=== PATIENT | female | born 1995 | race African-American/Black ===

== ENCOUNTER 2016-11-12 10:45 | Inpatient (IN) | payer OTHER ==
[2016-11-12] MEDS: DEXTROSE 5%-LACTATED RINGERS 1,000 ML IV SCH ×2 (11:05→17:26)
[2016-11-12] MEDS ORDERED: BUTORPHANOL TARTRATE 1 MG/ML VIAL IVPB ONE ×2 (11:09→12:15)
--- NOTE | 2016-11-12 11:13 | HP ---
Past Medical History - Primary Care Physician PCP:: Merced Piedra - Admission Chief Complaint: Labor History of Present Illness: 21 yo P0 with c/o labor for delivery History Source: Patient - Past Surgical History Past Surgical History: Yes: None Hx Myomectomy: No Hx Transabdominal Cerclage: No - Smoking History Smoking history: Never smoked Aproximately how many cigarettes per day: 0 - Alcohol/Substance Use Hx Alcohol Use: No History of Substance Use: reports: None - Social History History of Recent Travel: No Home Medications - Allergies Allergies/Adverse Reactions: Allergies Allergy/AdvReac Type Severity Reaction Status Date / Time No Known Allergies Allergy Verified 11/12/16 11:04 - Home Medications Home Medications: Ambulatory Orders Vitamins (Sjr) - 1 tab PO DAILY 11/12/16 Review of Systems - Review of Systems Constitutional: reports: No Symptoms Eyes: reports: No Symptoms HENT: reports: No Symptoms Neck: reports: No Symptoms Cardiovascular: reports: No Symptoms Respiratory: reports: No Symptoms Gastrointestinal: reports: No Symptoms Genitourinary: reports: No Symptoms Breasts: reports: No Symptoms Reported Musculoskeletal: reports: No Symptoms Integumentary: reports: No Symptoms Neurological: reports: No Symptoms Endocrine: reports: No Symptoms Hematology/Lymphatic: reports: No Symptoms Psychiatric: reports: No Symptoms Physical Exam - Maternity Constitutional: Yes: Well Nourished, No Distress Cardiovascular: Yes: WNL Breast(s): Yes: WNL - Abdominal Exam/OB Number of Fetuses: Single Presentation: Vertex Contractions: Yes Regularity: Regular Monitor Mode: External Heart Rate Location: [facility] Category: I Accelerations: Non-Uniform Decelerations: None - Vaginal Exam/OB Dilatation (cm): 4 Effacement (%): 100 Amniotic Membrane Status: Intact Presentation: Vertex/Position Station: -1 - Physical Exam Musculoskeletal: Yes: WNL Extremities: Yes: WNL Edema: No Hemorrhage Risk Assessment - Risk Factors Risk Score: 0 Risk Level: Low Risk Problem List - Problems (1) Labor established Code(s): [id number] - Assessment/Plan IUP at 40 weeks labor estavblished Cat 1 Plan admit to
[2016-11-12] MEDS ORDERED: AMPICILLIN - 100 ML IVPB ONE (11:30)
[2016-11-12 11:51] LABS: BASOPHIL 0.2 % (0-2.0); EOSINOPHIL 0.3 % (0-4.5); MCH 26.2 pg (25.7-33.7); MCHC 33.5 g/dl (32.0-36.0); MEAN CELL VOLUME 78.2 fl (80-96); MEAN PLT VOLUME 8.4 fl (7.5-11.1); NEUTROPHILS 65.9 % (42.8-82.8); PLATELET COUNT 267 K/MM3 (134-434); RDW 16.1 % (11.6-15.6); WHITE BLOOD COUNT 15.2 K/mm3 (4.0-10.0)
[2016-11-12 11:53] LABS: URINE APPEARANCE CLEAR; URINE BILIRUBIN NEGATIVE (NEGATIVE); URINE BLOOD NEGATIVE (NEGATIVE); URINE COLOR STRAW; URINE GLUCOSE (UA) NEGATIVE (NEGATIVE); URINE KETONE NEGATIVE (NEGATIVE); URINE NITRITE NEGATIVE (NEGATIVE); URINE PROTEIN NEGATIVE (NEGATIVE); URINE UROBILINOGEN NEGATIVE mg/dL (0.2-1.0)
[2016-11-12 11:55] LABS: URINE LEUK ESTERASE 2+ (NEGATIVE)
[2016-11-12 12:01] LABS: URINE MUCUS RARE; URINE RBC 1 /hpf (0-3); URINE WBC 26 /hpf (3-5)
[2016-11-12] MEDS ORDERED: PROMETHAZINE HCL 25 MG/1 ML VIAL IVPB ONE (12:15)
[2016-11-12 12:16] LABS: ANION GAP 11 (8-16); CALCIUM 8.7 mg/dL (8.5-10.1); CO2 22 mmol/L (21-32); CREATININE 0.6 mg/dL (0.55-1.02); GLUCOSE,RANDOM 91 mg/dL (74-106); INR 0.99 (0.82-1.09); PROTHROMBIN TIME (PATIENT) 10.9 SEC (9.98-11.88)
[2016-11-12 12:19] LABS: ACTIVATED PTT 22.8 SECONDS (26.9-34.4)
[2016-11-12 12:52] VITALS: BMI 36.0
[2016-11-12] MEDS ORDERED: TUBERCULIN PPD 5 TU/0.1ML SYRINGE (IN PATIENT USE ONLY) ID ONE (13:00)
--- NOTE | 2016-11-12 14:49 | PN ---
Ante-Partal Exam - Subjective Subjective: Pt with c/o contractions no rom no bleeding Vital Signs: Vital Signs Temperature 98.3 F 11/12/16 14:00 Pulse Rate 70 11/12/16 14:00 Respiratory Rate 18 11/12/16 14:00 Blood Pressure 123/76 11/12/16 14:00 O2 Sat by Pulse Oximetry (%) Bleeding: No Headache: No Visual changes: No Right upper quadrant pain: No - Contractions Contractions: Yes Regularity: Regular Monitor Mode: External - Exam during Labor Variability: Moderate Heart Rate Location: [facility] Category: I Monitor Accelerations: Present Monitor Decelerations: None Exam: Vaginal Dilatation (cm): 9 Effacement (%): 100 Amniotic Membrane Status: Ruptured Amniotic Fluid: Clear Presentation: Vertex Station: 0 - Intrapartum Hemorrhage Risk Risk Score: 0 Risk Level: Low Risk - Assessment/Plan Assessment/Plan: Active labor arom Cat 1 Plan continue present management Pt refusing epidural
[2016-11-12] MEDS ORDERED: WITCH HAZEL 50% (TUCKS) 40 PAD/JAR PAD TP PRN (14:50)
[2016-11-12] MEDS ORDERED: BISACODYL 10 MG SUPP.RECT RC PRN (14:50)
[2016-11-12] MEDS ORDERED: METHYLERGONOVINE MALEATE 0.2 MG/1 ML AMP IM PRN (14:50)
[2016-11-12] MEDS ORDERED: BENZOCAINE 28 GM HEMORRHOIDAL OINTMENT PR PRN (14:50)
[2016-11-12] MEDS ORDERED: BENZOCAINE 20% 57 GM BOTTLE TP PRN (14:50)
[2016-11-12] MEDS ORDERED: SIMETHICONE 80 MG TAB.CHEW (FP) PO PRN (14:51)
[2016-11-12] MEDS ORDERED: IBUPROFEN 600 MG TABLET (FP) PO PRN (14:51)
[2016-11-12] MEDS: AMPICILLIN - 100 ML IVPB SCH ×2 (14:59→18:44)
[2016-11-12] MEDS ORDERED: D5W-LR W/ 20 UNITS OXYTOCIN 1,000 ML IV SCH ×2 (15:00→20:30)
--- NOTE | 2016-11-12 20:20 | PN ---
Ante-Partal Exam - Subjective Subjective: Pt pushing in 2nd stage Vital Signs: Vital Signs Temperature 98.5 F 11/12/16 18:00 Pulse Rate 84 11/12/16 18:00 Respiratory Rate 20 11/12/16 18:00 Blood Pressure 132/82 11/12/16 18:00 O2 Sat by Pulse Oximetry (%) - Contractions Contractions: Yes - Exam during Labor Category: II Monitor Accelerations: Present Monitor Decelerations: Prolonged Exam: Vaginal Dilatation (cm): 10 Effacement (%): 100 Presentation: Vertex Station: +2 - Intrapartum Hemorrhage Risk Risk Score: 0 Risk Level: Low Risk - Assessment/Plan Assessment/Plan: prolonged 2nd stage Cat 2 Plan anticipate vaginal delivery
[2016-11-12 20:21] LABS: VENOUS PH 7.39 (7.32-7.42)
[2016-11-12 20:22] LABS: VENOUS BLOOD GAS HCO3 18.8 meq/L (19-25)
[2016-11-12 20:24] LABS: ART PUNCT SITE OTHER; ARTERIAL BLD GAS O2 SATURATION 41.5 % (90-98.9); ARTERIAL BLOOD GAS BASE EXCESS -3.5 meq/l (-2-2); ARTERIAL BLOOD GAS HCO3 21.8 meq/L (22-26); ARTERIAL BLOOD GAS pH 7.33 (7.35-7.45); LPM/O2% 21%; PT. ON O2? no
--- NOTE | 2016-11-12 20:24 | LDN ---
Shoulder Dystocia Delivery Time Head Delivered: 19:59 Time Body Delivered: 20:00 - Initial Traction Gentle attempt at traction, assisted by maternal expulsive forces - Maneuvers utilized in order and by whom Maneuver 1: Episiotomy Maneuver 2: Jeet Maneuver 3: Suprapubic Pressure Maneuver 4: Episiotomy Extension Maneuver 5: Wood's Maneuver Maneuver 6: Posterior Arm Release The arm under the symphysis at the point of the head was: Right Maneuvers: Goodson's Maneuver - 30 degree oblique rotation of the anterior shoulder with the spine oriented anteriorly Wood's Maneuver - reduce anterior shoulder fro posterior aspect pushing in direction face is looking
[2016-11-12 20:25] LABS: TYPE OF O2 room air
--- NOTE | 2016-11-12 20:30 | PN ---
Delivery - Delivery Vaginal Delivery: Shoulder/Difficult Type of Anesthesia: Local Episiotomy/Laceration: Right Mediolateral, Cervical Extension/lac (Nuchal cord reduced. 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
[2016-11-12] MEDS: FERROUS SO4 325 MG TABLET (FP) PO SCH (21:37)
[2016-11-12] MEDS: ACETAMINOPHEN 325 MG TABLET (FP) PO PRN (21:37)
[2016-11-12] MEDS: IBUPROFEN 600 MG TABLET (FP) PO PRN (21:38)
--- NOTE | 2016-11-13 06:23 | PN ---
Post Note - Post Date of Delivery: 11/12/16 Post Day: 1 Vital Signs: Vital Signs - 24 hr 11/12/16 11/12/16 11/12/16 11:00 12:00 13:00 Temperature 98.2 F 98.3 F Pulse Rate 67 88 86 Respiratory 20 18 18 Rate Blood Pressure 137/83 122/83 120/78 11/12/16 11/12/16 11/12/16 14:00 15:00 16:00 Temperature 98.3 F Pulse Rate 70 73 79 Respiratory 18 18 20 Rate Blood Pressure 123/76 122/56 121/82 11/12/16 11/12/16 11/12/16 17:00 18:00 19:00 Temperature 97.6 F 98.5 F 98.4 F Pulse Rate 74 84 86 Respiratory 20 20 20 Rate Blood Pressure 139/78 132/82 130/67 11/12/16 11/12/16 11/12/16 20:20 20:35 20:50 Temperature 98.4 F Pulse Rate 99 H 88 80 Respiratory 18 20 20 Rate Blood Pressure 146/83 128/79 129/69 11/12/16 11/12/16 11/13/16 21:00 21:05 02:00 Temperature 99.8 F H 99.1 F Pulse Rate 83 82 114 H Respiratory 18 20 20 Rate Blood Pressure 126/73 125/62 128/63 11/13/16 06:00 Temperature 98.3 F Pulse Rate 100 H Respiratory 20 Rate Blood Pressure 112/57 Labs: Laboratory Results - last 24 hr 11/12/16 11/12/16 11/12/16 11:15 11:15 11:15 WBC 15.2 H RBC 3.91 Hgb 10.2 L Hct 30.6 L MCV 78.2 L MCH 26.2 MCHC 33.5 RDW 16.1 H Plt Count 267 MPV 8.4 Neutrophils % 65.9 Lymphocytes % 20.7 Monocytes % 12.9 H Eosinophils % 0.3 Basophils % 0.2 INR 0.99 PTT (Actin FS) 22.8 L Puncture Site ABG pH ABG pCO2 at Pt Temp ABG pO2 at Pt Temp ABG HCO3 ABG O2 Sat (Measured) ABG O2 Content ABG Base Excess Glenn Test VBG pH POC VBG pCO2 POC VBG pO2 Mixed VBG HCO3 O2 Delivery Device Oxygen Flow Rate Sodium 139 Potassium 3.2 L Chloride 106 Carbon Dioxide 22 Anion Gap 11 BUN 3 L Creatinine 0.6 Random Glucose 91 Calcium 8.7 Urine Color Urine Appearance Urine pH Ur Specific [place] Urine Protein Urine Glucose (UA) Urine Ketones Urine Blood Urine Nitrite Urine Bilirubin Urine Urobilinogen Ur Leukocyte Esterase Urine RBC Urine WBC Ur Epithelial Cells Urine Mucus RPR Titer Blood Type Antibody Screen 11/12/16 11/12/16 11/12/16 11:15 11:15 11:30 WBC RBC Hgb Hct MCV MCH MCHC RDW Plt Count MPV Neutrophils % Lymphocytes % Monocytes % Eosinophils % Basophils % INR PTT (Actin FS) Puncture Site ABG pH ABG pCO2 at Pt Temp ABG pO2 at Pt Temp ABG HCO3 ABG O2 Sat (Measured) ABG O2 Content ABG Base Excess Glenn Test VBG pH POC VBG pCO2 POC VBG pO2 Mixed VBG HCO3 O2 Delivery Device Oxygen Flow Rate Sodium Potassium Chloride Carbon Dioxide Anion Gap BUN Creatinine Random Glucose Calcium Urine Color Straw Urine Appearance Clear Urine pH 7.0 Ur Specific [place] 1.015 Urine Protein Negative Urine Glucose (UA) Negative Urine Ketones Negative Urine Blood Negative Urine Nitrite Negative Urine Bilirubin Negative Urine Urobilinogen Negative Ur Leukocyte Esterase 2+ H Urine RBC 1 Urine WBC 26 Ur Epithelial Cells Rare Urine Mucus Rare RPR Titer Nonreactive Blood Type A POSITIVE Antibody Screen Negative 11/12/16 11/12/16 11/12/16 12:58 20:20 20:20 WBC RBC Hgb Hct MCV MCH MCHC RDW Plt Count MPV Neutrophils % Lymphocytes % Monocytes % Eosinophils % Basophils % INR PTT (Actin FS) Puncture Site Other ABG pH 7.33 L ABG pCO2 at Pt Temp 42.3 ABG pO2 at Pt Temp 22.0 L* ABG HCO3 21.8 L ABG O2 Sat (Measured) 41.5 L* ABG O2 Content 9.6 L* ABG Base Excess -3.5 L Glenn Test Not applicable VBG pH 7.39 POC VBG pCO2 31.6 L POC VBG pO2 36.3 Mixed VBG HCO3 18.8 L O2 Delivery Device room air Oxygen Flow Rate 21% Sodium Potassium Chloride Carbon Dioxide Anion Gap BUN Creatinine Random Glucose Calcium Urine Color Urine Appearance Urine pH Ur Specific [place] Urine Protein Urine Glucose (UA) Urine Ketones Urine Blood Urine Nitrite Urine Bilirubin Urine Urobilinogen Ur Leukocyte Esterase Urine RBC Urine WBC Ur Epithelial Cells Urine Mucus RPR Titer Blood Type A POSITIVE Antibody Screen - Subjective Subjective: No Complaints - Objective Afebrile: Yes Breast: Not engorged Abdomen: Soft, Non-tender Uterus: Fundus firm Vagina: Scant lochia Extremities: Non-tender - Assessment/Plan (1) Labor established Assessment: S/P Normal Plan: Routine Care
[2016-11-13 08:00] LABS: MCH 26.2 pg (25.7-33.7); MCHC 33.1 g/dl (32.0-36.0); MEAN CELL VOLUME 79.2 fl (80-96); MEAN PLT VOLUME 9.1 fl (7.5-11.1); PLATELET COUNT 237 K/MM3 (134-434); RDW 15.7 % (11.6-15.6); WHITE BLOOD COUNT 25.1 K/mm3 (4.0-10.0)
[2016-11-13] MEDS: FERROUS SO4 325 MG TABLET (FP) PO SCH ×2 (09:36→21:31)
[2016-11-13] MEDS: ACETAMINOPHEN 325 MG TABLET (FP) PO PRN ×2 (09:36→21:31)
[2016-11-13] MEDS: IBUPROFEN 600 MG TABLET (FP) PO PRN ×2 (09:37→21:31)
[2016-11-13] MEDS ORDERED: DIPHTH,PERTUSS(ACELL),TET 0.5 ML DISP.SYRIN IM ONE (10:00)
[2016-11-13 11:17] LABS: PLATELET ESTIMATE ADEQUATE (NORMAL)
--- NOTE | 2016-11-14 05:13 | DS ---
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: Vital Signs Temperature 98.0 F 11/13/16 22:00 Pulse Rate 98 H 11/13/16 22:00 Respiratory Rate 18 11/13/16 22:00 Blood Pressure 115/60 11/13/16 22:00 O2 Sat by Pulse Oximetry (%) Constitutional: Yes: Well Nourished, No Distress Neck: Yes: WNL Cardiovascular: Yes: WNL Respiratory: Yes: WNL Gastrointestinal: Yes: WNL, Soft Breast(s): Yes: WNL Musculoskeletal: Yes: WNL Extremities: Yes: WNL Labs: CBC, BMP 11/13/16 06:00 11/12/16 11:15 Delivery - Delivery Vaginal Delivery: Shoulder/Difficult Type of Anesthesia: Local Episiotomy/Laceration: Right Mediolateral, Cervical Extension/lac (Nuchal cord reduced. 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
[2016-11-14] MEDS: FERROUS SO4 325 MG TABLET (FP) PO SCH (09:31)
[2016-11-14 13:15] VITALS: BP 129/76; PULSE 90; TEMP 98.8
== END 2016-11-14 12:15 | disposition home or self-care (01) | DRG 560 ==
LOC: JDEL 10:45 → JLDR 11:00 → J3W 21:09
PROVIDERS: ADMIT Obstetrics & Gynecology; ATTEND Obstetrics & Gynecology
PROC: 10E0XZZ Delivery of Products of Conception, External Approach (ICD-10-PCS; principal; 2016-11-12)
PROC: 0W8NXZZ Division of Female Perineum, External Approach (ICD-10-PCS; 2016-11-12)
DX: O48.0 Post-term pregnancy (principal); Z3A.40 40 weeks gestation of pregnancy; Z37.0 Single live birth
CPT/HCPCS: 36415; 36600; 59409; 80048; 81003; 81015; 82803; 85025; 85610; 85730; 86593; 86850; 86900; 86901; 87340; 90715

== ENCOUNTER 2017-07-02 16:56 | Emergency (ER) | payer OTHER ==
[2017-07-02 17:36] VITALS: BP 156/85; PULSE 79; TEMP 97.7; BMI 31.7
--- NOTE | 2017-07-02 17:51 | PDOC ---
Rapid Medical Evaluation Time Seen by Provider: 07/02/17 17:31 Medical Evaluation: Allergies Allergy/AdvReac Type Severity Reaction Status Date / Time No Known Allergies Allergy Verified 07/02/17 17:24 07/02/17 17:31 I have performed a brief in-person evaluation of this patient. The patient presents with a chief complaint of: Recurrent abscesses to b/l axilla, here w/ recurrent abscess to L axilla, no f/c Pertinent physical exam findings:sinus tracts w/ scarring to b/l axilla w/ ~2x1 cm draining abscess to L axilla w/ surrounding erythema I have ordered the following:nothing The patient will proceed to the ED for further evaluation.
--- NOTE | 2017-07-02 18:25 | PDOC ---
History of Present Illness - General Chief Complaint: Abscess Boil Stated Complaint: CYST Time Seen by Provider: 07/02/17 17:31 History Source: Patient Exam Limitations: No Limitations - History of Present Illness Initial Comments: 07/02/17 18:40 Patient is a 22-year-old female, history of multiple abscesses presents with inflamed abscesses to bilateral axilla. Patient was seen at [facility] for the same and was told to apply a and D ointment to area patient did not want to apply any ointments to area so she came here for evaluation. Patient complaining of pain described as stabbing to bilateral axilla, no fever, multiple draining wounds to bilateral sides. Past Medical History: [Denies]. Allergies: No known allergies Medications: [] Family History: Non-contributory Social History: Denies smoking, alcohol use, or IVDU Vital signs on arrival are [notable for pulse of 96.] Review of Systems GENERAL/CONSTITUTIONAL: [No fever or chills. No weakness. No weight change.] HEAD, EYES, EARS, NOSE AND THROAT: [No change in vision. No ear pain or discharge. No sore throat. ] CARDIOVASCULAR: [No chest pain or shortness of breath.] RESPIRATORY: [No cough, wheezing, or hemoptysis.] GASTROINTESTINAL: [No nausea, vomiting, diarrhea or constipation. No rectal bleeding.] GENITOURINARY: [No dysuria, frequency, or change in urination.] MUSCULOSKELETAL: [No joint or muscle swelling or pain. No neck or back pain.] SKIN : [No rash or easy bruising. Erythematous, draining lesions to bilateral axilla] NEUROLOGIC: [No headache, vertigo, loss of consciousness, or loss of sensation.] PSYCHIATRIC: [No depression or anxiety.] Physical Exam: GENERAL: [The patient is awake, alert, and fully oriented, in no acute distress. ] HEAD: [Normal with no signs of trauma.] EYES: [Pupils equal, round and reactive to light, extraocular movements intact, sclera anicteric, conjunctiva clear.] ENT: [Ears normal, nares patent, oropharynx clear without exudates. Moist mucous membranes. No uvula deviation] NECK: [Normal range of motion, supple without lymphadenopathy, JVD, or masses.] LUNGS: [Breath sounds equal, clear to auscultation bilaterally. No wheezes, and no crackles.] HEART: [Regular rate and rhythm, normal S1 and S2 without murmur, rub or gallop. ] ABDOMEN: [Soft, nontender, normoactive bowel sounds. No guarding, no rebound. No masses. No bruising or abrasions] RECTAL : [Guaiac negative, normal rectal tone.] MUSCULOSKELETAL: [Normal range of motion, no edema. No clubbing or cyanosis. No cords, erythema, or tenderness. No CVA Tenderness with fist.] NEUROLOGICAL: [Cranial nerves II through XII grossly intact. Normal speech, normal gait.] PSYCH: [Normal mood, normal affect.] SKIN: Erythematous, painful, draining pustulant drainage lesions to bilateral axilla consistent with hidradenitis Past History - Past Medical History Allergies/Adverse Reactions: Allergies Allergy/AdvReac Type Severity Reaction Status Date / Time No Known Allergies Allergy Verified 07/02/17 17:32 Home Medications: Ambulatory Orders Clindamycin [Cleocin -] 300 mg PO TID #30 capsule 07/02/17 Fluconazole [Diflucan -] 150 mg PO ONCE #3 tablet 07/02/17 Oxycodone HCl/Acetaminophen [Percocet 5-325 mg Tablet] 1 tab PO Q6H PRN #8 tablet MDD 4 07/02/17 Asthma: No Cancer: No Cardiac Disorders: No COPD: No DVT: No Diabetes: No HTN: No Seizures: No Thyroid Disease: No - Immunization History Immunization Up to Date: Yes - Suicide/Smoking/Psychosocial Hx Smoking Status: No Smoking History: Never smoked Have you smoked in the past 12 months: No Number of Cigarettes Smoked Daily: 0 Information on smoking cessation initiated: No Hx Alcohol Use: No Drug/Substance Use Hx: No Substance Use Type: None Hx Substance Use Treatment: No *Physical Exam - Vital Signs Last Vital Signs Temp Pulse Resp BP Pulse Ox 97.7 F 79 16 156/85 100 07/02/17 17:32 07/02/17 17:32 07/02/17 17:32 07/02/17 17:32 07/02/17 17:32 Medical Decision Making - Medical Decision Making 07/02/17 18:46 A/P: Patient with hidradenitis suppurativa, will DC patient on clindamycin, Diflucan for frequent yeast infections while taking antibiotics and Percocet as needed for pain. Strict follow-up with surgery and dermatology. Warm soaks to area, no new lotion soaps or detergents no deodorant area. If any increased redness swelling or signs of infection should return immediately to ER. Wound culture sent patient to follow-up in one week *DC/Admit/Observation/Transfer Diagnosis at time of Disposition: Hidradenitis axillaris - Discharge Dispostion Disposition: HOME Condition at time of disposition: Stable Admit: No - Prescriptions Prescriptions: Clindamycin [Cleocin -] 300 mg PO TID #30 capsule Fluconazole [Diflucan -] 150 mg PO ONCE #3 tablet Oxycodone HCl/Acetaminophen [Percocet 5-325 mg Tablet] 1 tab PO Q6H PRN #8 tablet MDD 4 PRN Reason: Pain - Referrals Referrals: Aric Jang [Non Staff, Medical] - - Patient Instructions Printed Discharge Instructions: Hidradenitis Suppurativa Additional Instructions: Warm soaks Follow-up with dermatology Please call [phone] in one week for results of culture Monitor area for any increased redness swelling or signs of infection - Post Discharge Activity Forms/Work/School Notes: Back to Work
--- NOTE | 2017-07-07 12:46 | PDOC ---
Patient Follow-up (Call Back) - Post ED Follow - Up Condition at time of discharge: Stable Disposition at time of original discharge: HOME Reason for Call Back: Abnwl. Microbiology (Patient with positive culture for staph aureus susceptible to current treatment.)
== END 2017-07-02 18:28 | disposition home or self-care (01) ==
LOC: JERFT 16:56
DX: L73.2 Hidradenitis suppurativa (principal)
CPT/HCPCS: 87070; 87186; 87205; 99281-25

== ENCOUNTER 2018-05-25 15:17 | Emergency (ER) | payer OTHER ==
--- NOTE | 2018-05-25 15:22 | PDOC ---
Rapid Medical Evaluation Chief Complaint: Pain, Acute Time Seen by Provider: 05/25/18 15:20 Medical Evaluation: Allergies Allergy/AdvReac Type Severity Reaction Status Date / Time No Known Allergies Allergy Verified 07/02/17 17:32 05/25/18 15:20 I have performed a brief in person evaluation of this patient. The patient presents with the CC of: abd pain HPI: Pt is a 23 Yo female who states over the past week she has had abd pain worse over the past 2-3 days. LMP was 3 weeks ago. No hx of abd surgeries. Denies fever. PE: Skin: Clear Lungs: Clear Heart: RRR Abd: non tender MS: Moves all extremities without difficulty Neuro: Alert and oriented Psych: Appropriate affect I have ordered the following: abd protocol Pt will proceed to the main ED for further evaluation. Discharge Disposition - Diagnosis Abdominal pain Qualifiers: Abdominal location: generalized Qualified Code(s): R10.84 - Generalized abdominal pain - Discharge Dispostion Condition at time of disposition: Stable - Referrals - Patient Instructions - Post Discharge Activity
[2018-05-25 15:23] VITALS: BP 138/83; PULSE 89; TEMP 98.4; BMI 36.0
[2018-05-25 15:48] LABS: BASO % 0.2 % (0-2.0); EOS % 0.5 % (0-4.5); HEMATOCRIT 34.5 % (32.4-45.2); HEMOGLOBIN 12.1 GM/dL (10.7-15.3); LYMPH % 39.5 % (8-40); MCH 28.6 pg (25.7-33.7); MEAN CELL VOLUME 81.5 fl (80-96); MEAN PLT VOLUME 8.4 fl (7.5-11.1); MONO % 15.2 % (3.8-10.2); NEUT % 44.6 % (42.8-82.8); PLATELET COUNT 354 K/MM3 (134-434); RBC 4.23 M/mm3 (3.60-5.2)
[2018-05-25 15:52] LABS: HCG,QUALITATIVE URINE Positive
[2018-05-25 15:56] LABS: URINE APPEARANCE SLCLOUDY; URINE BILIRUBIN NEGATIVE (<2.0 mg/dL); URINE COLOR YELLOW; URINE GLUCOSE (UA) NEGATIVE (NEGATIVE); URINE KETONE NEGATIVE (NEGATIVE); URINE LEUK ESTERASE 1+ (NEGATIVE); URINE NITRITE NEGATIVE (NEGATIVE); URINE PROTEIN 1+ (NEGATIVE); URINE UROBILINOGEN 4.0 E.U/dl mg/dL (0.2-1.0)
[2018-05-25] MEDS ORDERED: SODIUM CHLORIDE 0.9% 500 ML INFUS.BAG IV ONE (16:11)
[2018-05-25] MEDS ORDERED: LIDOCAINE VISCOUS 2% ORAL/TOP 20 ML UNIT-DOSE CUP MM ONE (16:12)
[2018-05-25] MEDS ORDERED: MAG HYDROX/AL HYDROX/SIMETH 30 ML UNIT-DOSE CUP PO ONE (16:12)
[2018-05-25] MEDS ORDERED: RANITIDINE HCL 150 MG/10 ML UNIT-DOSE PO ONE (16:12)
--- NOTE | 2018-05-25 16:13 | PDOC ---
History of Present Illness - General Chief Complaint: Pain, Acute Stated Complaint: ABD PAIN / VOMITTING Time Seen by Provider: 05/25/18 15:20 - History of Present Illness Initial Comments: The patient is a 23F w/ no reported PMH who presents for evaluation for 2 weeks of epigastric pain associated w/ vomiting. She states the epigastric pain is dull/achy, non-radiating, exacerbated by food, not alleviated by anything she can identify. She vomited Wednesday and twice on Wednesday, both episodes NBNB. She denies fevers/chills, recent illness, diarrhea, blood in stool, dysuria, hematuria, or change in sensation. Unknown LMP. 05/25/18 19:02 Past History - Past Medical History Allergies/Adverse Reactions: Allergies Allergy/AdvReac Type Severity Reaction Status Date / Time No Known Allergies Allergy Verified 07/02/17 17:32 Home Medications: Ambulatory Orders Cephalexin Monohydrate [Keflex -] 500 mg PO BID 7 Days #14 capsule 05/25/18 Asthma: No Cancer: No Cardiac Disorders: No COPD: No DVT: No Diabetes: No HTN: No Seizures: No Thyroid Disease: No - Immunization History Immunization Up to Date: Yes - Suicide/Smoking/Psychosocial Hx Smoking Status: No Smoking History: Former smoker Have you smoked in the past 12 months: No Number of Cigarettes Smoked Daily: 0 Information on smoking cessation initiated: No Hx Alcohol Use: No Drug/Substance Use Hx: No Substance Use Type: None Hx Substance Use Treatment: No Review of Systems - Review of Systems Able to Perform ROS?: Yes Comments:: GENERAL/CONSTITUTIONAL: No fever or chills. No weakness HEAD, EYES, EARS, NOSE AND THROAT: No change in vision. No ear pain or discharge. No sore throat CARDIOVASCULAR: No chest pain or shortness of breath RESPIRATORY: Denies cough, hemoptysis GASTROINTESTINAL: per HPI GENITOURINARY: No dysuria, frequency, or change in urination MUSCULOSKELETAL: No joint or muscle swelling or pain. No neck or back pain SKIN: No rash NEUROLOGIC: No headache, vertigo, loss of consciousness, or change in strength/ sensation ENDOCRINE: No increased thirst. No abnormal weight change HEMATOLOGIC/LYMPHATIC: No anemia, easy bleeding, or history of blood clots ALLERGIC/IMMUNOLOGIC: No hives or skin allergy. 05/25/18 19:05 Is the patient limited Wolof proficient: No *Physical Exam - Vital Signs Last Vital Signs Temp Pulse Resp BP Pulse Ox 98.4 F 89 18 138/83 99 05/25/18 15:19 05/25/18 15:19 05/25/18 15:19 05/25/18 15:19 05/25/18 15:19 - Physical Exam Comments: GENERAL: Awake, alert, and fully oriented, in no acute distress HEAD: No signs of trauma, normocephalic, atraumatic EYES: PERRLA, EOMI, sclera anicteric, conjunctiva clear ENT: Hearing grossly normal, nares patent, oropharynx clear without exudates. Moist mucosa LUNGS: No distress, speaks full sentences, clear to auscultation bilaterally HEART: Regular rate and rhythm, normal S1 and S2, no murmurs appreciated, peripheral pulses normal and equal bilaterally ABDOMEN: Soft, non-distended, mild epigastric TTP w/o rebound or guarding, +BS EXTREMITIES : Normal inspection, Normal range of motion, no edema. No clubbing or cyanosis NEUROLOGICAL: Cranial nerves II through XII grossly intact. Normal speech, normal gait, no focal sensorimotor deficits SKIN: Warm, Dry, normal turgor, no rashes or lesions noted 05/25/18 19:05 Moderate Sedation - Procedure Monitoring Vital Signs: Procedure Monitoring Vital Signs Temperature 98.4 F 05/25/18 15:19 Pulse Rate 89 05/25/18 15:19 Respiratory Rate 18 05/25/18 15:19 Blood Pressure 138/83 05/25/18 15:19 O2 Sat by Pulse Oximetry (%) 99 05/25/18 15:19 ED Treatment Course - LABORATORY CBC & Chemistry Diagram: 05/25/18 15:29 05/25/18 16:37 - ADDITIONAL ORDERS Additional order review: Laboratory Results 05/25/18 15:10 Urine HCG, Qual Positive 05/25/18 15:29 RBC 4.23 MCV 81.5 MCHC 35.0 RDW 16.0 H MPV 8.4 Neutrophils % 44.6 D Lymphocytes % 39.5 D Monocytes % 15.2 H Eosinophils % 0.5 Basophils % 0.2 Medical Decision Making - Medical Decision Making The patient is a 23F w/ no reported PMH who presents for evaluation of abdominal pain with N/V ED Course CMP, CBC, UA, Upreg RUQ and Transvaginal US 05/25/18 19:06 Lytes wnl No leukocytosis No anemia U preg +, Beta-quant [id number] Transvaginal US w/ single live intraurterine at 9wks Patient given zofran for symptoms UA w/ evidence UTI (asymptomatic UTI) -Keflex in ED -Rx for Keflex sent Patient tolerating PO in ED Follow for OBGYN given Plan for D/C w/ f/u Discharge instructions and return precautions given Dispo: Home *DC/Admit/Observation/Transfer Diagnosis at time of Disposition: Abdominal pain Qualifiers: Abdominal location: generalized Qualified Code(s): R10.84 - Generalized abdominal pain Qualifiers: Weeks of gestation: 9 weeks Qualified Code(s): Z3A.09 - 9 weeks gestation of UTI (urinary tract infection) during Qualifiers: Trimester: first trimester Qualified Code(s): O23.41 - Unspecified infection of urinary tract in , first trimester - Discharge Dispostion Disposition: HOME Condition at time of disposition: Stable Decision to Admit order: No - Prescriptions Prescriptions: Cephalexin Monohydrate [Keflex -] 500 mg PO BID 7 Days #14 capsule - Referrals - Patient Instructions Printed Discharge Instructions: DI for Urinary Tract Infection (UTI) Additional Instructions: You were seen in the Emergency Department for abdominal pain and vomiting. You were found to be 9 weeks and some evidence of a UTI. A prescription for antibiotics (Keflex) was sent to the pharmacy that you specified, take as directed. Follow up with your OBGYN and primary care provider. Return to the Emergency Department if you have worsening symptoms, vaginal bleeding/discharge, are unable to tolerate liquids, or have any new/concerning symptoms. - Post Discharge Activity Forms/Work/School Notes: Back to Work
[2018-05-25] MEDS ORDERED: ONDANSETRON 4 MG/2 ML VIAL IVPUSH ONE (16:14)
[2018-05-25] MEDS ORDERED: ONDANSETRON 4 MG/2 ML VIAL ONE (16:17)
--- NOTE | 2018-05-25 16:18 | PDOC ---
Attending Attestation - Resident Resident Name: Benny Bryson - ED Attending Attestation I have performed the following: I have examined & evaluated the patient, The case was reviewed & discussed with the resident, I agree w/resident's findings & plan, Exceptions are as noted - HPI HPI: 05/25/18 16:16 23 yo F presenting with 2 weeks of epigastric pain Two episodes of vomiting, non bloody, non bilious Denies fevers, Reports Chills Denies diarrhea 05/25/18 17:41 - Physicial Exam PE: 05/25/18 16:18 GENERAL: The patient is in no acute distress. EYES: PERRLA, EOMI, sclera anicteric, conjunctiva clear. ENT: Ears normal, nares patent, oropharynx clear without exudates. Moist mucous membranes. NECK: Normal range of motion, supple LUNGS: Breath sounds equal, clear to auscultation bilaterally. No wheezes, and no crackles. HEART:Regular rate and rhythm, normal S1 and S2 without murmur, rub or gallop. ABDOMEN: Soft, nontender, normoactive bowel sounds. No guarding, no rebound. No masses palpable. EXTREMITIES: Normal range of motion, no edema. NEUROLOGICAL: Cranial nerves II through XII grossly intact. Normal speech. No focal neurological deficits. MUSCULOSKELETAL: Back non-tender to palpation SKIN: Warm, Dry, normal turgor, no rashes or lesions noted. - Medical Decision Making 05/25/18 16:18 Laboratory Tests 05/25/18 05/25/18 15:10 15:29 WBC 9.0 Hgb 12.1 Hct 34.5 D Plt Count 354 D Neutrophils % 44.6 D Lymphocytes % 39.5 D Urine HCG, Qual Positive 05/25/18 17:41 Laboratory Tests 05/25/18 15:10 Urine Blood Negative Urine Nitrite Negative Urine WBC (Auto) 20 Urine RBC (Auto) 2 Ur Epithelial Cells Moderate Urine Bacteria Rare Urine Mucus Few 05/26/18 12:56 Laboratory Tests 05/25/18 05/25/18 05/25/18 15:10 15:29 16:37 WBC 9.0 Hgb 12.1 Hct 34.5 D Plt Count 354 D BUN 7 Creatinine 0.6 Total Amylase 75 Lipase 220 Beta HCG, Quant 154057.9 Urine WBC (Auto) 20 Urine RBC (Auto) 2 Ur Epithelial Cells Moderate Urine Bacteria Rare Urine Mucus Few 05/26/18 12:56 US demonstrates 9w 4 days Limited abd us negative Will discharge to home Follow up with PMD
[2018-05-25 16:59] LABS: EPI CELLS MODERATE /HPF (FEW); URINE BACTERIA RARE /hpf (NONE SEEN); URINE MUCUS FEW
[2018-05-25 18:31] LABS: ALBUMIN 3.3 g/dl (3.4-5.0); ALK PHOS 62 U/L (45-117); AMYLASE 75 U/L (25-115); ANION GAP 7 MMOL/L (8-16); BILIRUBIN,TOTAL 0.3 mg/dL (0.2-1); BLOOD UREA NITROGEN 7 mg/dL (7-18); CALCIUM 8.4 mg/dL (8.5-10.1); CHLORIDE 106 mmol/L (98-107); CO2 23 mmol/L (21-32); CREATININE 0.6 mg/dL (0.55-1.3); GLUCOSE,RANDOM 74 mg/dL (74-106); LIPASE 220 U/L (73-393); POTASSIUM 3.8 mmol/L (3.5-5.1); SGOT/AST 21 U/L (15-37); SGPT/ALT 29 U/L (13-61); SODIUM 136 mmol/L (136-145); TOT PROT 7.9 g/dl (6.4-8.2)
[2018-05-25] MEDS ORDERED: CEPHALEXIN MONOHYDRATE 500 MG CAPSULE (UD) PO ONE (18:57)
[2018-05-25] MEDS ORDERED: CEPHALEXIN MONOHYDRATE 500 MG CAPSULE (UD) ONE (19:22)
== END 2018-05-25 19:38 | disposition home or self-care (01) ==
LOC: JER 15:17
PROC: 3E033GC Introduction of Other Therapeutic Substance into Peripheral Vein, Percutaneous Approach (ICD-10-PCS; principal; 2018-05-25)
PROC: 3E0337Z Introduction of Electrolytic and Water Balance Substance into Peripheral Vein, Percutaneous Approach (ICD-10-PCS; 2018-05-25)
DX: O23.41 Unspecified infection of urinary tract in pregnancy, first trimester (principal); O26.891 Other specified pregnancy related conditions, first trimester; Z3A.09 9 weeks gestation of pregnancy; R10.84 Generalized abdominal pain; Z87.891 Personal history of nicotine dependence
CPT/HCPCS: 36415; 76705-TC; 76801-TC; 80053; 81003; 81015; 82150; 83690; 84702; 84703; 85025; 99283-25

== ENCOUNTER 2018-12-17 09:25 | Inpatient (IN) | payer OTHER ==
[2018-12-17] MEDS ORDERED: AMPICILLIN - 2 GM in SODIUM CHLORIDE 100 ML IVPB ONE (09:45)
[2018-12-17] MEDS ORDERED: OXYTOCIN 20 UNITS in 0.9% NS 20 UNIT/1,000 ML INFUS.BAG IV ONE (10:06)
--- NOTE | 2018-12-17 10:13 | PN ---
Ante-Partal Exam - Subjective Subjective: Pt with urge to pus Cat 2 tracing consent for vacuum obtained Bleeding: No Headache: No Visual changes: No Right upper quadrant pain: No - Contractions Contractions: Yes Regularity: Regular Monitor Mode: External - Exam during Labor Variability: Moderate Category: II Monitor Accelerations: Present Monitor Decelerations: Variable Exam: Vaginal Dilatation (cm): 10 Effacement (%): 100 Amniotic Membrane Status: Ruptured Presentation: Vertex Station: +1 - Intrapartum Hemorrhage Risk Risk Score: 0 Risk Level: Low Risk - Assessment/Plan Assessment/Plan: Cat 2 tracing will encourage to push P1 GBS positive Plan anticipate vaginal delivery
[2018-12-17] MEDS ORDERED: BISACODYL 10 MG SUPP.RECT RC PRN (10:16)
[2018-12-17] MEDS ORDERED: METHYLERGONOVINE MALEATE 0.2 MG/1 ML AMP IM PRN (10:16)
[2018-12-17] MEDS ORDERED: WITCH HAZEL 50% (TUCKS) 40 PAD/JAR PAD TP PRN (10:16)
[2018-12-17] MEDS ORDERED: BENZOCAINE 20% 57 GM BOTTLE TP PRN (10:16)
[2018-12-17] MEDS ORDERED: BENZOCAINE 28 GM HEMORRHOIDAL OINTMENT TP PRN (10:16)
--- NOTE | 2018-12-17 10:18 | HP ---
Past Medical History - Primary Care Physician PCP:: Merced Piedra - Admission History Source: Patient Limitations to Obtaining History: No Limitations - Past Surgical History Past Surgical History: Yes: None Hx Myomectomy: No Hx Transabdominal Cerclage: No - Smoking History Smoking history: Former smoker Have you smoked in the past 12 months: No Aproximately how many cigarettes per day: 0 - Alcohol/Substance Use Hx Alcohol Use: No History of Substance Use: reports: None - Social History History of Recent Travel: No Home Medications - Allergies Allergies/Adverse Reactions: Allergies Allergy/AdvReac Type Severity Reaction Status Date / Time No Known Allergies Allergy Verified 07/02/17 17:32 - Home Medications Home Medications: Ambulatory Orders Cephalexin Monohydrate [Keflex -] 500 mg PO BID 7 Days #14 capsule 05/25/18 Physical Exam - Maternity Constitutional: Yes: Well Nourished, No Distress Cardiovascular: Yes: WNL Lungs: Clear to auscultation - Abdominal Exam/OB Fundal Height: 40 Number of Fetuses: Single Presentation: Vertex Contractions: Yes Regularity: Regular Category: II Decelerations: Variable - Vaginal Exam/OB Dilatation (cm): 10 Amniotic Membrane Status: Ruptured Presentation: Vertex/Position - Physical Exam Musculoskeletal: Yes: WNL Hemorrhage Risk Assessment - Risk Factors Risk Score: 0 Risk Level: Low Risk Problem List - Problems (1) Labor established Code(s): RPW7508 - Assessment/Plan Cat 2 GBS positive Plan possible vacuum delivery
[2018-12-17] MEDS: IBUPROFEN 600 MG TABLET (FP) PO PRN ×2 (10:20→14:55)
[2018-12-17] MEDS: ACETAMINOPHEN 325 MG TABLET (FP) PO PRN ×2 (10:20→14:54)
--- NOTE | 2018-12-17 10:26 | PROC ---
Obstetrical Vaccum Device - Doc. Following Use of Vaccum Device Indications for use: Bradycardia Risks and Benefits Explained: Yes Consent on Chart: Yes Station: 2 Position: OA Caput: No Proper placement of cup confirmed: No Number of pulls: 1 Number of pop-offs: 0 Reduction of pressure between contractions: Yes Appearance of head on delivery: Normal Customer Marketing Assistant present during vacuum extraction: No Customer Marketing Assistant & nursery staff notified of vacuum extraction: Yes
--- NOTE | 2018-12-17 10:27 | PN ---
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
[2018-12-17] MEDS ORDERED: D5W-LR W/ 20 UNITS OXYTOCIN 20 UNIT/1,000 ML INFUS.BAG IV SCH (10:30)
[2018-12-17] MEDS ORDERED: DEXTROSE 5%-LACTATED RINGERS 1,000 ML IV SCH (10:30)
[2018-12-17 11:01] LABS: BASO % 0.4 % (0-2.0); EOS % 0.5 % (0-4.5); HEMATOCRIT 29.7 % (32.4-45.2); HEMOGLOBIN 9.8 GM/dL (10.7-15.3); LYMPH % 36.3 % (8-40); MCH 24.9 pg (25.7-33.7); MCHC 33.2 g/dl (32.0-36.0); MEAN PLT VOLUME 8.8 fl (7.5-11.1); MONO % 4.4 % (3.8-10.2); NEUT % 58.4 % (42.8-82.8); RBC 3.96 M/mm3 (3.60-5.2); RDW 17.8 % (11.6-15.6); WHITE BLOOD COUNT 10.8 K/mm3 (4.0-10.0)
[2018-12-17 11:03] LABS: CALCIUM 8.7 mg/dL (8.5-10.1); CREATININE 0.8 mg/dL (0.55-1.3); POTASSIUM 3.3 mmol/L (3.5-5.1)
[2018-12-17 11:05] LABS: INR 1.03 (0.83-1.09); PROTHROMBIN TIME (PATIENT) 12.2 SEC (9.7-13.0)
[2018-12-17 11:06] VITALS: BMI 36.9
[2018-12-17 11:08] LABS: ACTIVATED PTT 24.6 SECONDS (25.2-36.5)
[2018-12-17 11:15] LABS: PLATELET COUNT 279 K/MM3 (134-434)
[2018-12-17] MEDS ORDERED: AMPICILLIN - 1 GM in SODIUM CHLORIDE 100 ML IVPB SCH (14:17)
[2018-12-17] MEDS: FERROUS SO4 325 MG TABLET (FP) PO SCH ×2 (14:21→16:56)
[2018-12-17] MEDS: SENNOSIDES/DOCUSATE COMBO (SENNA PLUS) TABLET (UD) PO PRN (22:11)
[2018-12-17] MEDS: POTASSIUM CHLORIDE TABS 20 MEQ TABLET.ER (FP) PO SCH (22:11)
--- NOTE | 2018-12-18 05:38 | PN ---
Post Note - Post Date of Delivery: 12/17/18 Post Day: 1 Vital Signs: Vital Signs - 24 hr 12/17/18 12/17/18 12/17/18 10:00 10:15 10:30 Temperature Pulse Rate 73 73 72 Respiratory 20 20 20 Rate Blood Pressure 137/67 135/76 132/73 12/17/18 12/17/18 12/17/18 10:45 10:58 13:14 Temperature 98.4 F 98 F 98.8 F Pulse Rate 74 76 88 Respiratory 20 20 20 Rate Blood Pressure 133/74 101/83 130/74 12/17/18 12/17/18 12/18/18 18:00 20:36 00:33 Temperature 98.3 F 99.3 F 98.5 F Pulse Rate 87 78 79 Respiratory 20 20 20 Rate Blood Pressure 122/74 126/78 124/69 Labs: Laboratory Results - last 24 hr 12/17/18 12/17/18 12/17/18 09:58 09:58 10:17 WBC 10.8 H RBC 3.96 Hgb 9.8 L Hct 29.7 L MCV 75.0 L MCH 24.9 L D MCHC 33.2 RDW 17.8 H Plt Count 279 D MPV 8.8 Absolute Neuts (auto) 6.3 Neutrophils % 58.4 D Lymphocytes % 36.3 Monocytes % 4.4 Eosinophils % 0.5 Basophils % 0.4 Nucleated RBC % 0 PT with INR INR PTT (Actin FS) Cord Blood pH 7.23 7.33 Cord Blood PCO2 52.1 38.9 Cord Blood PO2 < 49 H < 49 H Cord Blood HCO3 20.9 19.9 L Cord Base Excess -7.1 L -5.1 L Sodium Potassium Chloride Carbon Dioxide Anion Gap BUN Creatinine Est GFR (CKD-EPI)AfAm Est GFR (CKD-EPI)NonAf Random Glucose Calcium RPR Titer Blood Type Antibody Screen 12/17/18 12/17/18 12/17/18 10:17 10:17 10:17 WBC RBC Hgb Hct MCV MCH MCHC RDW Plt Count MPV Absolute Neuts (auto) Neutrophils % Lymphocytes % Monocytes % Eosinophils % Basophils % Nucleated RBC % PT with INR 12.20 INR 1.03 PTT (Actin FS) 24.6 L Cord Blood pH Cord Blood PCO2 Cord Blood PO2 Cord Blood HCO3 Cord Base Excess Sodium 139 Potassium 3.3 L Chloride 106 Carbon Dioxide 19 L Anion Gap 14 BUN 5.0 L Creatinine 0.8 Est GFR (CKD-EPI)AfAm 120.44 Est GFR (CKD-EPI)NonAf 103.92 Random Glucose 136 H Calcium 8.7 RPR Titer Nonreactive Blood Type Antibody Screen 12/17/18 10:17 WBC RBC Hgb Hct MCV MCH MCHC RDW Plt Count MPV Absolute Neuts (auto) Neutrophils % Lymphocytes % Monocytes % Eosinophils % Basophils % Nucleated RBC % PT with INR INR PTT (Actin FS) Cord Blood pH Cord Blood PCO2 Cord Blood PO2 Cord Blood HCO3 Cord Base Excess Sodium Potassium Chloride Carbon Dioxide Anion Gap BUN Creatinine Est GFR (CKD-EPI)AfAm Est GFR (CKD-EPI)NonAf Random Glucose Calcium RPR Titer Blood Type A POSITIVE Antibody Screen Negative - Assessment/Plan (1) Labor established Assessment: S/P Normal Plan: Routine Care
[2018-12-18] MEDS: ACETAMINOPHEN 325 MG TABLET (FP) PO PRN (07:02)
[2018-12-18] MEDS: IBUPROFEN 600 MG TABLET (FP) PO PRN (07:02)
[2018-12-18] MEDS: FERROUS SO4 325 MG TABLET (FP) PO SCH ×3 (08:32→17:22)
[2018-12-18 08:33] LABS: BASO % 0.4 % (0-2.0); EOS % 0.6 % (0-4.5); HEMATOCRIT 26.4 % (32.4-45.2); HEMOGLOBIN 8.8 GM/dL (10.7-15.3); LYMPH % 29.9 % (8-40); MCH 24.4 pg (25.7-33.7); MCHC 33.4 g/dl (32.0-36.0); MEAN CELL VOLUME 73.2 fl (80-96); MEAN PLT VOLUME 8.8 fl (7.5-11.1); MONO % 9.6 % (3.8-10.2); NEUT % 59.5 % (42.8-82.8); PLATELET COUNT 254 K/MM3 (134-434); RBC 3.61 M/mm3 (3.60-5.2); RDW 17.8 % (11.6-15.6); WHITE BLOOD COUNT 12.8 K/mm3 (4.0-10.0)
[2018-12-18] MEDS: PRENATAL VITAMINS W/ FOLIC ACID TABLET (FP) PO SCH (10:03)
[2018-12-18] MEDS: POTASSIUM CHLORIDE TABS 20 MEQ TABLET.ER (FP) PO SCH ×2 (10:03→21:17)
[2018-12-18] MEDS: SENNOSIDES/DOCUSATE COMBO (SENNA PLUS) TABLET (UD) PO PRN (21:18)
[2018-12-19] MEDS: FERROUS SO4 325 MG TABLET (FP) PO SCH ×2 (08:24→11:22)
[2018-12-19] MEDS: POTASSIUM CHLORIDE TABS 20 MEQ TABLET.ER (FP) PO SCH (09:23)
[2018-12-19] MEDS: PRENATAL VITAMINS W/ FOLIC ACID TABLET (FP) PO SCH (09:23)
[2018-12-19 10:16] VITALS: BP 109/65; PULSE 67; TEMP 98.2
--- NOTE | 2018-12-22 08:41 | DS ---
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 Vital Signs: Vital Signs Temperature 98.2 F 12/19/18 10:00 Pulse Rate 67 12/19/18 10:00 Respiratory Rate 18 12/19/18 10:00 Blood Pressure 109/65 12/19/18 10:00 O2 Sat by Pulse Oximetry (%) Constitutional: Yes: Well Nourished, No Distress Neck: Yes: WNL Cardiovascular: Yes: WNL Gastrointestinal: Yes: WNL, Soft ....Post : Yes: Uterus firm, Uterus non-tender Breast(s): Yes: WNL Musculoskeletal: Yes: WNL Extremities: Yes: WNL Neurological: Yes: WNL, Alert, Oriented Labs: CBC, BMP 12/18/18 08:08 12/17/18 10:17 Delivery - Delivery Vaginal Delivery: Vacuum Assist Type of Anesthesia: None Episiotomy/Laceration: 1st degree ([facility] delivery with shoulder and supra pubic delivery) EBL (cc): 300 Delivery, Single - Stages of Labor Date 1st Stage Initiatied: 12/17/18 Time 1st Stage Initiated: 05:30 Date 2nd Stage Initiated: 12/17/18 Time 2nd Stage Initiated: 09:45 Date of Delivery: 12/17/18 Time of Delivery: 09:57 Time Placenta Delivered: 10:00 Placenta: Yes: Spontaneous - 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 You may walk unlimited power of and climb stairs. You may resume driving the car when you feel safe and comfortable behind the wheel. No sexual activity as instructed. Wound care If you have a bandage, leave it on, and keep dry for 48-72 hours. After that time discard the outer bandage. If they are tapes on the skin under the out of bandage leave them in place. They will peel off in the next 7 to 10 days. Do Not Peel them off. You may shower the day after surgery. If there are tapes present on the skin, you may shower over them. Diet There are no dietary restrictions. Eat healthy, high-fiber foods. Drink 6 to 8 glasses of liquid each day. This will assist in keeping your bowels are regular. Pain management You may take Tylenol or acetaminophen or Ibuprofen (for example, Motrin, Advil etc.) from my pain prescription medication is ordered should be taken as prescribed for moderate to severe pain. Call MD for any of the following: Severe pain not relieved by medication Fever of 101 or higher Excessive bleeding or drainage on dressing Inability to urinate Disposition: HOME - Home Medications Comprehensive Discharge Medication List: Ambulatory Orders Ibuprofen [Motrin -] 600 mg PO QID #28 tablet 12/17/18
== END 2018-12-19 13:40 | disposition home or self-care (01) | DRG 560 ==
LOC: JLDR 09:25 → J3W 12:00
PROVIDERS: ADMIT Obstetrics & Gynecology; ATTEND Obstetrics & Gynecology
PROC: 0HQ9XZZ Repair Perineum Skin, External Approach (ICD-10-PCS; principal; 2018-12-17)
PROC: 0W8NXZZ Division of Female Perineum, External Approach (ICD-10-PCS; 2018-12-17)
PROC: 10D07Z6 Extraction of Products of Conception, Vacuum, Via Natural or Artificial Opening (ICD-10-PCS; 2018-12-17)
DX: O70.0 First degree perineal laceration during delivery (principal); Z3A.39 39 weeks gestation of pregnancy; O76 Abnormality in fetal heart rate and rhythm complicating labor and delivery; Z22.330 Carrier of Group B streptococcus; Z37.0 Single live birth
CPT/HCPCS: 36415; 36600; 59409; 80048; 82803; 85025; 85610; 85730; 86593; 86850; 86900; 86901

== ENCOUNTER 2021-04-26 15:45 | Emergency (ER) | payer OTHER ==
[2021-04-26 16:12] VITALS: BP 116/68; PULSE 118; TEMP 100.3; BMI 34.0
[2021-04-28 16:07] LABS: SARS-CoV-2 NAA Detected (Not Detected)
== END 2021-04-26 17:53 | disposition home or self-care (01) ==
LOC: JER 15:45
DX: U07.1 COVID-19 (principal)
CPT/HCPCS: 87804; 87807; 99283-25; C9803; U0003; U0005

== ENCOUNTER 2021-12-16 13:41 | Inpatient (IN) | payer OTHER ==
[2021-12-16] MEDS: ELECTROLYTE-148 SOLN 1,000 ML IV SCH ×2 (14:30→20:45)
[2021-12-16 14:49] VITALS: BMI 40.6
[2021-12-16] MEDS ORDERED: BUTORPHANOL TARTRATE 1 MG/ML VIAL IVPB PRN (15:39)
[2021-12-16] MEDS ORDERED: PROMETHAZINE HCL 25 MG/1 ML VIAL IVPUSH ONE (15:39)
[2021-12-16] MEDS ORDERED: LABETALOL HCL 200 MG TABLET (FP) ONE ×2 (15:44→21:53)
[2021-12-16] MEDS ORDERED: OXYTOCIN 30 UNITS in 0.9% NS 30 UNIT/500 ML INFUS.BAG IVPB ONE (15:44)
[2021-12-16] MEDS ORDERED: OXYTOCIN 30 UNITS in 0.9% NS 30 UNIT/500 ML INFUS.BAG IVPB SCH (15:45)
[2021-12-16] MEDS: LABETALOL HCL 200 MG TABLET (FP) PO SCH ×2 (15:50→22:00)
[2021-12-16 16:22] LABS: CALCIUM 8.4 mg/dL (8.5-10.1)
[2021-12-16 16:23] LABS: BLOOD UREA NITROGEN 4.2 mg/dL (7-18)
[2021-12-16 16:26] LABS: CREATININE 0.5 mg/dL (0.55-1.3)
[2021-12-16 16:30] LABS: INR 1.03 (0.83-1.09); PROTHROMBIN TIME (PATIENT) 11.8 SEC (9.7-13.0)
[2021-12-16 16:32] LABS: ACTIVATED PTT 24.1 SECONDS (25.2-36.5); BASO % 0.3 % (0-2.0); EOS % 0.5 % (0-4.5); HEMATOCRIT 28.5 % (32.4-45.2); HEMOGLOBIN 9.8 GM/dL (10.7-15.3); LYMPH % 24.7 % (8-40); MCH 26.7 pg (25.7-33.7); MCHC 34.6 g/dl (32.0-36.0); MEAN CELL VOLUME 77.2 fl (80-96); MEAN PLT VOLUME 8.5 fl (7.5-11.1); MONO % 10.8 % (3.8-10.2); NEUT % 63.7 % (42.8-82.8); PLATELET COUNT 277 10^3/uL (134-434); RBC 3.69 M/mm3 (3.60-5.2); RDW 16.7 % (11.6-15.6); WHITE BLOOD COUNT 9.3 K/mm3 (4.0-10.0)
[2021-12-16] MEDS ORDERED: AMPICILLIN SODIUM 2 GM VIAL ONE (17:56)
[2021-12-16] MEDS ORDERED: AMPICILLIN - 2 GM in SODIUM CHLORIDE 100 ML IVPB ONE (18:00)
[2021-12-16] MEDS ORDERED: AMPICILLIN SODIUM 1 GM VIAL ONE (21:53)
[2021-12-16] MEDS: AMPICILLIN - 1 GM in SODIUM CHLORIDE 100 ML IVPB SCH (22:00)
[2021-12-17] MEDS ORDERED: PROMETHAZINE HCL 25 MG/1 ML VIAL ONE (01:20)
[2021-12-17] MEDS ORDERED: BUTORPHANOL TARTRATE 2 MG/ML VIAL ONE (01:20)
[2021-12-17] MEDS ORDERED: OXYTOCIN 20 UNITS in 0.9% NS 20 UNIT/1,000 ML INFUS.BAG IV ONE ×2 (01:33→09:01)
[2021-12-17] MEDS ORDERED: AMPICILLIN SODIUM 1 GM VIAL ONE (01:58)
[2021-12-17] MEDS: AMPICILLIN - 1 GM in SODIUM CHLORIDE 100 ML IVPB SCH ×2 (02:00→07:44)
[2021-12-17] MEDS ORDERED: BENZOCAINE 20% 57 GM BOTTLE TP PRN (03:25)
[2021-12-17] MEDS ORDERED: ACETAMINOPHEN 325 MG TABLET (FP) PO PRN (03:25)
[2021-12-17] MEDS ORDERED: BENZOCAINE 28 GM HEMORRHOIDAL OINTMENT TP PRN (03:25)
[2021-12-17] MEDS ORDERED: METHYLERGONOVINE MALEATE 0.2 MG/1 ML AMP IM PRN (03:25)
[2021-12-17] MEDS ORDERED: oxyCODONE HCL 5 MG TABLET PO PRN (03:25)
[2021-12-17] MEDS ORDERED: BISACODYL 10 MG SUPP.RECT RC PRN (03:25)
[2021-12-17] MEDS ORDERED: WITCH HAZEL 50% (TUCKS) 40 PAD/JAR PAD TP PRN (03:25)
[2021-12-17] MEDS: OXYTOCIN 20 UNITS in 0.9% NS 20 UNIT/1,000 ML INFUS.BAG IV SCH ×2 (04:01→09:04)
[2021-12-17] MEDS ORDERED: IBUPROFEN 600 MG TABLET (FP) PO ONE (04:21)
[2021-12-17] MEDS: IBUPROFEN 600 MG TABLET (FP) PO PRN (04:24)
[2021-12-17 08:47] LABS: BASO % 0.3 % (0-2.0); HEMATOCRIT 28.3 % (32.4-45.2); HEMOGLOBIN 9.4 GM/dL (10.7-15.3); LYMPH % 11.3 % (8-40); MCH 25.6 pg (25.7-33.7); MCHC 33.1 g/dl (32.0-36.0); MEAN CELL VOLUME 77.3 fl (80-96); MEAN PLT VOLUME 8.8 fl (7.5-11.1); MONO % 7.4 % (3.8-10.2); PLATELET COUNT 286 10^3/uL (134-434); RBC 3.66 M/mm3 (3.60-5.2); RDW 16.5 % (11.6-15.6); WHITE BLOOD COUNT 17.4 K/mm3 (4.0-10.0)
[2021-12-17] MEDS: FERROUS SO4 325 MG TABLET (FP) PO SCH ×3 (09:04→17:40)
[2021-12-17] MEDS ORDERED: PRENATAL VITAMINS W/ FOLIC ACID TABLET (FP) PO ONE (10:10)
[2021-12-17] MEDS ORDERED: ACETAMINOPHEN 325 MG TABLET (FP) ONE (10:17)
[2021-12-17] MEDS: PRENATAL VITAMINS W/ FOLIC ACID TABLET (FP) PO SCH (10:21)
[2021-12-17] MEDS: LABETALOL HCL 200 MG TABLET (FP) PO SCH ×2 (10:21→21:39)
[2021-12-17] MEDS ORDERED: FERROUS SO4 325 MG TABLET (FP) ONE (12:16)
[2021-12-18] MEDS: FERROUS SO4 325 MG TABLET (FP) PO SCH ×3 (08:50→17:39)
[2021-12-18 09:50] LABS: BASO % 0.3 % (0-2.0); EOS % 0.7 % (0-4.5); HEMATOCRIT 25.3 % (32.4-45.2); HEMOGLOBIN 8.6 GM/dL (10.7-15.3); LYMPH % 32.6 % (8-40); MCH 26.6 pg (25.7-33.7); MCHC 34.2 g/dl (32.0-36.0); MEAN CELL VOLUME 77.8 fl (80-96); MEAN PLT VOLUME 8.6 fl (7.5-11.1); MONO % 10.5 % (3.8-10.2); NEUT % 55.9 % (42.8-82.8); PLATELET COUNT 242 10^3/uL (134-434); RBC 3.25 M/mm3 (3.60-5.2); RDW 16.9 % (11.6-15.6); WHITE BLOOD COUNT 11.5 K/mm3 (4.0-10.0)
[2021-12-18] MEDS: PRENATAL VITAMINS W/ FOLIC ACID TABLET (FP) PO SCH (10:45)
[2021-12-18] MEDS: LABETALOL HCL 200 MG TABLET (FP) PO SCH ×2 (10:47→21:25)
[2021-12-18] MEDS ORDERED: PRENATAL VITAMINS W/ FOLIC ACID TABLET (FP) PO SCH (11:00)
[2021-12-18] MEDS ORDERED: FERROUS GLUCONATE 324 MG TAB (FP) PO SCH (11:00)
[2021-12-18] MEDS: IBUPROFEN 600 MG TABLET (FP) PO PRN (21:25)
[2021-12-18] MEDS ORDERED: SENNOSIDES/DOCUSATE COMBO (SENNA PLUS) TABLET (UD) PO PRN (22:00)
[2021-12-19] MEDS: LABETALOL HCL 200 MG TABLET (FP) PO SCH (12:38)
[2021-12-19] MEDS: FERROUS SO4 325 MG TABLET (FP) PO SCH ×2 (12:44→15:52)
[2021-12-19] MEDS: PRENATAL VITAMINS W/ FOLIC ACID TABLET (FP) PO SCH (12:44)
[2021-12-19 14:07] VITALS: BP 126/80; PULSE 91; RESP 17; TEMP 98.1
== END 2021-12-19 16:00 | disposition home or self-care (01) | DRG 560 ==
LOC: JLDR 13:41 → J3W 12-17 13:00
PROVIDERS: ADMIT Obstetrics & Gynecology; ATTEND Obstetrics & Gynecology
PROC: 10E0XZZ Delivery of Products of Conception, External Approach (ICD-10-PCS; principal; 2021-12-17)
DX: O13.4 Gestational [pregnancy-induced] hypertension without significant proteinuria, complicating childbirth (principal); O48.0 Post-term pregnancy; O99.214 Obesity complicating childbirth; E66.01 Morbid (severe) obesity due to excess calories; O90.81 Anemia of the puerperium; D64.9 Anemia, unspecified; Z3A.41 41 weeks gestation of pregnancy; Z37.0 Single live birth
CPT/HCPCS: 36415; 59409; 80048; 85025; 85610; 85730; 86780; 86850; 86900; 86901; C9803-CS; U0003; U0005

== ENCOUNTER 2023-05-09 20:41 | Emergency (ER) | payer OTHER ==
[2023-05-09 20:45] VITALS: BP 140/87; PULSE 112; RESP 20; TEMP 98.6; BMI 36.9
[2023-05-09] MEDS ORDERED: ALBUTEROL SO4 2.5/IPRATROPIUM 0.5 INH SOL 3 ML VIAL.NEB. NEB ONE ×2 (21:25→21:28)
== END 2023-05-09 22:13 | disposition home or self-care (01) ==
LOC: JERFT 20:41
PROC: 3E0F7GC Introduction of Other Therapeutic Substance into Respiratory Tract, Via Natural or Artificial Opening (ICD-10-PCS; principal; 2023-05-09)
DX: R50.9 Fever, unspecified (principal); R09.81 Nasal congestion; R05.9 Cough, unspecified; J10.1 Influenza due to other identified influenza virus with other respiratory manifestations; Z20.822 Contact with and (suspected) exposure to COVID-19
CPT/HCPCS: 0241U-QW; 99284-25

== ENCOUNTER 2023-10-15 21:26 | Emergency (ER) | payer OTHER ==
[2023-10-15 21:32] VITALS: BP 127/85; PULSE 88; RESP 18; TEMP 98.3; BMI 36.9
== END 2023-10-16 00:17 | disposition home or self-care (01) ==
LOC: JER 21:26
DX: O26.891 Other specified pregnancy related conditions, first trimester (principal); R11.0 Nausea; Z3A.09 9 weeks gestation of pregnancy
CPT/HCPCS: 36415; 76801-TC; 84702; 99284-25